=== PATIENT | male | born 1975 | race Hispanic/Latino ===

== ENCOUNTER 2021-04-29 21:15 | Emergency (ER) | payer SELFPAY ==
[~2021-04-29] VITALS: Ht 182.9 cm; Wt 120.2 kg
[2021-04-29] MEDS ORDERED: CASIRIVIMAB/IMDEVIMAB 10 ML in SODIUM CHLORIDE 0.9% 100 ML IV ONE (22:45)
[2021-04-30 00:29] VITALS: BP 127/92
== END 2021-04-30 00:30 | disposition home or self-care (01) ==
LOC: ER 21:25
DX: U07.1 COVID-19 (principal)
CPT/HCPCS: 99282

== ENCOUNTER 2022-02-26 23:53 | Emergency (ER) | payer SELFPAY ==
[~2022-02-26] VITALS: Ht 182.9 cm; Wt 141.5 kg
[2022-02-27] MEDS ORDERED: MUCINEX DM ER1 EAC1 PO (01:19)
[2022-02-27 02:07] VITALS: BP 114/68
== END 2022-02-27 02:12 | disposition home or self-care (01) ==
LOC: ER 23:57
DX: R05.9 Cough, unspecified (principal); B97.4 Respiratory syncytial virus as the cause of diseases classified elsewhere; Z20.822 Contact with and (suspected) exposure to COVID-19
CPT/HCPCS: 71045; 93005; 99283; U0002